=== PATIENT | male | born 1965 | race American Indian/Alaskan Native ===

== ENCOUNTER 2017-02-28 02:14 | Inpatient (IN) | payer OTHER ==
[2017-02-28 04:26] LABS: Basophils # (Auto) 0.1 K/mm3 (0.0-0.1); Basophils % (Auto) 1.1 % (0.0-1.8); Eosinophils # (Auto) 0.2 K/mm3 (0.0-0.4); Eosinophils % (Auto) 1.7 % (0.0-4.3); Hematocrit 46.4 % (35.5-45.6); Lymphocytes # (Auto) 3.2 K/mm3 (1.2-5.4); Lymphocytes % (Auto) 35.2 % (13.4-35.0); Mean Corpuscular HGB Conc 32 % (32-34); Mean Corpuscular Hemoglobin 28 pg (28-32); Mean Corpuscular Volume 87 fl (84-94); Monocytes # (Auto) 0.7 K/mm3 (0.0-0.8); Monocytes % (Auto) 7.8 % (0.0-7.3); Platelet Count 243 K/mm3 (140-440); Red Blood Count 5.32 M/mm3 (3.65-5.03)
[2017-02-28 04:48] LABS: BUN/Creatinine Ratio 13; Blood Urea Nitrogen 10 mg/dL (9-20); Calcium 8.7 mg/dL (8.4-10.2); Hemolysis Index 7
[2017-02-28 05:02] LABS: Chol/HDL Ratio 4.35 %; HDL Cholesterol 34 mg/dL (40-59); LDL Cholesterol,Direct 99 mg/dL (50-130)
[2017-02-28] MEDS ORDERED: HEPARIN 10,000 UNITS/10 ML IV ONE (05:07)
[2017-02-28] MEDS ORDERED: HEPARIN/ 0.45% NACL-25,000 UNIT/500 ML 25,000 UNIT/500 ML BAG IV SCH (06:00)
--- NOTE | 2017-02-28 06:18 | Emergency Department Report ---
HPI - General Chief Complaint: Dyspnea/Respdistress Time Seen by Provider: 02/28/17 03:51 - HPI HPI: This is a 52-year-old [place] male presents to the emergency department by EMS from a [place] facility with a complaint of possible new onset CHF. The patient' s been having a 2-3 day history of some chest discomfort and shortness of breath. He has a past medical history of lupus and he is a tobacco smoker. He had a full workup at [place] including CT of the chest and abdomen pelvis, labs, EKG. The patient denies any family history of early cardiac events. No recent travel or sick contacts at home. Currently the patient has some intermittent shortness of breath but he is asymptomatic in regards to the chest pain but does present with a Nitropaste on his chest. He already received a full dose aspirin and a 40 mg IV dose of Lasix. The patient's labs, EKG, H&P and the imaging disks were all sent with the patient and are currently on his chart. ED Past Medical Hx - Past Medical History Additional medical history: Lupus - Surgical History Past Surgical History?: No - Social History Smoking Status: Current Every Day Smoker Substance Use Type: None - Medications Home Medications: Home Medications Medication Instructions Recorded Confirmed Last Taken Type No Known Home Medications [No 02/28/17 02/28/17 Unknown History Reported Home Medications] ED Review of Systems ROS: Stated complaint: CHEST PAIN/CHF Other details as noted in HPI Comment: All other systems reviewed and negative Constitutional: denies: chills, fever Eyes: denies: eye pain, eye discharge, vision change ENT: denies: ear pain, throat pain Respiratory: shortness of breath. denies: cough Cardiovascular: chest pain, edema. denies: palpitations Gastrointestinal: denies: abdominal pain, nausea, diarrhea Genitourinary: denies: urgency, dysuria Musculoskeletal: denies: back pain, joint swelling, arthralgia Skin: denies: rash, lesions Neurological: denies: headache, weakness, paresthesias Physical Exam - Physical Exam Vital Signs: Vital Signs 02/28/17 02/28/17 02/28/17 02:44 02:46 02:51 Temperature 98.1 F Pulse Rate 103 H 99 H 96 H Respiratory 26 H 30 H 26 H Rate Blood Pressure 151/106 Blood Pressure 151/106 [Left] O2 Sat by Pulse Oximetry 02/28/17 02/28/17 02/28/17 03:02 03:15 03:30 Temperature Pulse Rate 85 85 85 Respiratory 15 24 19 Rate Blood Pressure 151/106 142/97 145/95 Blood Pressure [Left] O2 Sat by Pulse 96 96 97 Oximetry 02/28/17 02/28/17 02/28/17 03:46 04:00 04:16 Temperature Pulse Rate 110 H 104 H 91 H Respiratory 32 H 27 H 24 Rate Blood Pressure 147/89 132/77 139/94 Blood Pressure [Left] O2 Sat by Pulse 98 98 97 Oximetry 02/28/17 02/28/17 02/28/17 04:30 04:45 05:00 Temperature Pulse Rate 82 79 83 Respiratory 19 20 20 Rate Blood Pressure 132/86 139/95 130/87 Blood Pressure [Left] O2 Sat by Pulse 97 98 97 Oximetry 02/28/17 02/28/17 05:06 05:15 Temperature Pulse Rate 80 Respiratory 16 21 Rate Blood Pressure 129/88 Blood Pressure [Left] O2 Sat by Pulse 100 98 Oximetry Physical Exam: GENERAL: The patient is well-developed well-nourished. HENT: Normocephalic. Atraumatic. Patient has moist mucous membranes. EYES: Extraocular motions are intact. Pupils equal reactive to light bilaterally. NECK: Supple. Trachea is midline. CHEST/LUNGS: Clear to auscultation. There is no respiratory distress noted. HEART/CARDIOVASCULAR: Regular. There is no tachycardia. There is no murmur. ABDOMEN: Abdomen is soft, nontender. Patient has normal bowel sounds. There is no abdominal distention. SKIN: Mild pitting edema to the bilateral distal lower extremities. NEURO: The patient is awake, alert, and oriented. The patient is cooperative. The patient has no focal neurologic deficits. The patient has normal speech and gait. MUSCULOSKELETAL: There is no tenderness or deformity. There is no limitation range of motion. There is no evidence of acute injury. ED Course Vital Signs 02/28/17 02/28/17 02/28/17 02:44 02:46 02:51 Temperature 98.1 F Pulse Rate 103 H 99 H 96 H Respiratory 26 H 30 H 26 H Rate Blood Pressure 151/106 Blood Pressure 151/106 [Left] O2 Sat by Pulse Oximetry 02/28/17 02/28/17 02/28/17 03:02 03:15 03:30 Temperature Pulse Rate 85 85 85 Respiratory 15 24 19 Rate Blood Pressure 151/106 142/97 145/95 Blood Pressure [Left] O2 Sat by Pulse 96 96 97 Oximetry 02/28/17 02/28/17 02/28/17 03:46 04:00 04:16 Temperature Pulse Rate 110 H 104 H 91 H Respiratory 32 H 27 H 24 Rate Blood Pressure 147/89 132/77 139/94 Blood Pressure [Left] O2 Sat by Pulse 98 98 97 Oximetry 02/28/17 02/28/17 02/28/17 04:30 04:45 05:00 Temperature Pulse Rate 82 79 83 Respiratory 19 20 20 Rate Blood Pressure 132/86 139/95 130/87 Blood Pressure [Left] O2 Sat by Pulse 97 98 97 Oximetry 02/28/17 02/28/17 05:06 05:15 Temperature Pulse Rate 80 Respiratory 16 21 Rate Blood Pressure 129/88 Blood Pressure [Left] O2 Sat by Pulse 100 98 Oximetry - Consultations Consultation #1: I spoke with Dr. Wendie Mendez, cardiology, who has agreed to see the patient in consultation and recommends heparin based on the case presentation. 02/28/17 06:18 ED Medical Decision Making - Lab Data Result diagrams: 02/28/17 04:10 02/28/17 04:10 - EKG Data -: EKG Interpreted by Me EKG shows normal: sinus rhythm, axis, intervals, QRS complexes (Q waves in the septal leads), ST-T waves (there is some mild ST elevation in the anterior leads that could be early repolarization versus ischemia but does not appear consistent with ST elevation HI, T-wave inversions to the inferior and lateral leads) Rate: normal - EKG Data When compared to previous EKG there are: previous EKG unavailable Interpretation: other (sinus rhythm, Q waves in septal leads, T-wave inversions in the inferior and lateral leads) - Medical Decision Making Patient has a BNP greater than 3000. Troponin is elevated at 0.037. He had received Lasix for diuresis and a photo aspirin. He has Nitropaste on the chest. I spoke with cardiology who recommended heparin. The patient will be admitted to the hospital for further evaluation and treatment. I spoke to Dr. Ahumada at [place] who gave us permission to keep him at the hospital - Differential Diagnosis HI, PE, CHF< Pneumonia Critical Care Time: No Critical care attestation.: If time is entered above; I have spent that time in minutes in the direct care of this critically ill patient, excluding procedure time. ED Disposition Clinical Impression: NSTEMI (non-ST elevated myocardial infarction), Tobacco abuse CHF (congestive heart failure) Qualifiers: Congestive heart failure type: unspecified Congestive heart failure chronicity : acute Qualified Code(s): I50.9 - Heart failure, unspecified Disposition: 09 OP ADMIT IP TO THIS HOSP Is pt being admited?: Yes Condition: Fair Referrals: RYLEE MCDANIELS MD [Primary Care Provider] - 3-5 Days Time of Disposition: 06:19
[2017-02-28 06:46] LABS: INR 1.13 (0.87-1.13)
[2017-02-28 07:32] LABS: Partial Thromboplastin Time 203.1 Sec. (24.2-36.6)
--- NOTE | 2017-02-28 13:15 | History and Physical Report ---
History of Present Illness Date of examination: 02/28/17 Date of admission: 02/28/17 08:48 Chief complaint: SOB History of present illness: Patient is a 52 yo man with a history of diet controlled hypertension, tobacco dependancy and SLE (dx via head/scalp skin bx by [facility] at [facility]) who presents from [facility] with severe, constant, worsening shortness of breath that started approximately 3 days ago associated with a nonproductive cough, substernal chest heaviness without any radiation, associated with a nonproductive cough, right lower quadrant heaviness and insomnia. Patient denies any aggravating or relieving factors to the shortness of breath. He was sent over for evaluation of CHF per chest x- ray. Patient was also found to have elevated blood pressure, elevated troponin , ED physician notified quantitative analyst and started IV heparin drip. Patient had labs, imaging at [facility]. 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 Family history: Father had multiple strokes as early as his 50s, mother has hypertension, no early MIs or diabetes ROS: Constitutional: denies: fever ENT: denies: throat or neck pain Respiratory: Positive cough, shortness of breath Cardiovascular: Positive: chest pain Endocrine: denies unexplained weight loss or gain Gastrointestinal: denies: abdominal pain, nausea Genitourinary: denies: dysuria Rectal: denies no incontinence, no bleeding, no itching, no discharge Musculoskeletal: denies swelling, myaglia, muscle weakness Skin: Positive rash Neurological: denies: headache Hematological/Lymphatic: denies: easy bleeding or easy bruising Allergic/Immunologic: no urticaria, no allergic rhinitis, no anaphylaxis Psych: denies sadness or hopelessness, SI/HI Medications and Allergies Allergies Allergy/AdvReac Type Severity Reaction Status Date / Time No Known Allergies Allergy Verified 02/28/17 05:12 Home Medications Medication Instructions Recorded Confirmed Last Taken Type No Known Home Medications [No 02/28/17 02/28/17 Unknown History Reported Home Medications] Active Meds: Active Medications Heparin Sodium/Sodium Chloride (Heparin/ 0.45% Nacl-25,000 Unit/500 Ml) 25,000 unit in 500 mls @ 20 mls/hr IV TITRATE SANDRA; 1,000 UNITS/HR PRN Reason: Protocol Last Titration: 02/28/17 12:58 Dose: 1,000 units/hr, 20 mls/hr Exam - Physical Exam Narrative exam: GEN: WDWN, NAD, AWAKE, ALERT, ORIENTATED x 3 HEENT: NCAT, EOMI, PERRL, OP Clear NECK: supple, no adenopathy, no thyromegaly, + JVD CVS/HEART: RRR, NORMAL S1S2, NO JVD, pulses present bilaterally CHEST/LUNGS: bilateral crackles, Symmetrical chest expansion, good air entry bilaterally GI/Abdomen: soft, NTND, good bowel sounds, no guarding or rebound /Bladder: no suprapubic tenderness, no CVA or paraspinal tenderness EXT/Skin: ble pitting edema, skin lesion scalp, face of lupus MSK: FROM x 4 Neuro: CN 2-12 grossly intact, no new focal deficits Psych: calm - Constitutional Vitals: Temp Pulse Resp BP Pulse Ox 98.1 F 90 25 H 134/81 97 02/28/17 02:51 02/28/17 12:30 02/28/17 12:30 02/28/17 12:30 02/28/17 12:30 Results - Labs CBC & Chem 7: 02/28/17 04:10 02/28/17 04:10 Labs: Abnormal lab results 02/28/17 02/28/17 02/28/17 Range/Units 04:10 04:10 05:40 RBC 5.32 H (3.65-5.03) M/mm3 Hct 46.4 H (35.5-45.6) % Lymph % (Auto) 35.2 H (13.4-35.0) % [place] % (Auto) 7.8 H (0.0-7.3) % PT 15.1 H (12.2-14.9) Sec. APTT 203.1 H* (24.2-36.6) Sec. Carbon Dioxide 21 L (22-30) mmol/L Troponin T 0.037 H (0.00-0.029) ng/mL NT-Pro-B Natriuret Pep 3942 H (0-900) pg/mL HDL Cholesterol 34 L (40-59) mg/dL 02/28/17 02/28/17 Range/Units 09:33 12:29 RBC (3.65-5.03) M/mm3 Hct (35.5-45.6) % Lymph % (Auto) (13.4-35.0) % [place] % (Auto) (0.0-7.3) % PT (12.2-14.9) Sec. APTT 84.6 H* (24.2-36.6) Sec. Carbon Dioxide (22-30) mmol/L Troponin T 0.033 H (0.00-0.029) ng/mL NT-Pro-B Natriuret Pep (0-900) pg/mL HDL Cholesterol (40-59) mg/dL Assessment and Plan Patient is a 52 yo man with a history of diet controlled hypertension, tobacco dependancy and SLE (dx via head/scalp skin bx by [facility] at [facility]) who presents from [facility] with severe, constant, worsening shortness of breath that started approximately 3 days ago associated with a nonproductive cough, substernal chest heaviness without any radiation, associated with a nonproductive cough, right lower quadrant heaviness and insomnia. Patient denies any aggravating or relieving factors to the shortness of breath. He was sent over for evaluation of CHF per chest x- ray. Patient was also found to have elevated blood pressure, elevated troponin , ED physician notified quantitative analyst and started IV heparin drip. Patient had labs, imaging at [facility]. Patient has received ASA and iv lasix. 2v Chest x-ray at [facility] reported as right perihilar vascular congestion with prominent bronchovascular markings in the right lower lobe, no consolidation TSH was 1.97 CT of abdomen and pelvis reported as no acute findings -NSTEMI: iv heparin, await Cardiology evaluation, treat with aspirin and bb, statin, ntg -Acute CHF exacerbation, suspect at least diastolic dysfunction due to silent untreated hypertension: get ECHO, treat with iv lasix, repeat cxr in am, lower dose of bb due to chf ex -Hypertension urgency: prn iv labetalolo -Tobacco dependency: counselled on stopping, order nicotine patch -DVT/GI prophylaxis: scd and on iv heparin, ppi full code
--- NOTE | 2017-02-28 13:20 | Consultation ---
History of Present Illness Consult date: 02/28/17 Requesting physician: SHILPA LARKIN Consult reason: chest pain History of present illness: The patient is a 52 year old male with a history of hypertension, lupus and tobacco abuse who presented to the ER from a [place] facility with complaints of worsening shortness of breath, dyspnea on exertion, orthopnea, LE edema and a dry cough ongoing for the past one week. He denies any chest pain or palpitations. CXR done at [place] showed right perihilar vascular congestion with prominent vascular markings in the right LL. Chest CTA was negative for PE but showed moderate, R > L pleural effusion and patchy perihilar ground glass opacities with interlobular septal and bronchial wall thickening suggesting mild alveolar and interstitial edema. BNP 3942. Troponin 0.037, 0.033. No previous diagnosis of heart failure or previous ischemic evaluation. Past History Past Medical History: hypertension, other (lupus) Past Surgical History: No surgical history Social history: smoking (1/2 PPD), full code. denies: alcohol abuse, prescription drug abuse, IV drug use Family history: no significant family history Medications and Allergies Allergies Allergy/AdvReac Type Severity Reaction Status Date / Time No Known Allergies Allergy Verified 02/28/17 05:12 Home Medications Medication Instructions Recorded Confirmed Last Taken Type No Known Home Medications [No 02/28/17 02/28/17 Unknown History Reported Home Medications] Active Meds: Active Medications Heparin Sodium/Sodium Chloride (Heparin/ 0.45% Nacl-25,000 Unit/500 Ml) 25,000 unit in 500 mls @ 20 mls/hr IV TITRATE SANDRA; 1,000 UNITS/HR PRN Reason: Protocol Last Titration: 02/28/17 12:58 Dose: 1,000 units/hr, 20 mls/hr Review of Systems Constitutional: no fever, no chills Ears, nose, mouth and throat: no nasal congestion, no nasal discharge, no sinus pressure Cardiovascular: orthopnea, shortness of breath, dyspnea on exertion, no chest pain, no palpitations Respiratory: cough, shortness of breath, dyspnea on exertion, no congestion, no wheezing Gastrointestinal: no abdominal pain, no nausea, no vomiting, no diarrhea, no constipation Genitourinary Male: no dysuria, no hematuria Musculoskeletal: no neck stiffness, no neck pain, no myalgias Integumentary: no rash, no pruritis Neurological: no parathesias, no numbness, no tingling, no headaches Endocrine: no cold intolerance, no heat intolerance Hematologic/Lymphatic: no easy bruising, no easy bleeding Allergic/Immunologic: no urticaria, no wheezing Physical Examination Last Vital Signs Temp 98.1 F 02/28/17 02:51 Pulse 102 H 02/28/17 13:40 Resp 25 H 02/28/17 12:30 BP 134/81 02/28/17 12:30 Pulse Ox 97 02/28/17 12:30 General appearance: no acute distress HEENT: Positive: Normocephaly, Mucus Membranes Moist Neck: Positive: neck supple, trachea midline Cardiac: Positive: Reg Rate and Rhythm, S1/S2 Lungs: Positive: Rales (bilateral bases) Neuro: Positive: Grossly Intact Abdomen: Positive: Soft, Active Bowel Sounds. Negative: Tender Skin: Positive: Clear. Negative: Rash Extremities: Present: +1 Edema Results 02/28/17 04:10 02/28/17 04:10 Coagulation 02/28/17 02/28/17 Range/Units 05:40 09:33 PT 15.1 H (12.2-14.9) Sec. INR 1.13 (0.87-1.13) APTT 203.1 H* 84.6 H* (24.2-36.6) Sec. Lipids 02/28/17 Range/Units 04:10 Triglycerides 76 (2-149) mg/dL Cholesterol 148 (50-199) mg/dL HDL Cholesterol 34 L (40-59) mg/dL Cholesterol/HDL Ratio 4.35 % CBC 02/28/17 Range/Units 04:10 WBC 9.1 (4.5-11.0) K/mm3 RBC 5.32 H (3.65-5.03) M/mm3 Hgb 15.0 (11.8-15.2) gm/dl Hct 46.4 H (35.5-45.6) % Plt Count 243 (140-440) K/mm3 Lymph # 3.2 (1.2-5.4) K/mm3 [place] # 0.7 (0.0-0.8) K/mm3 Eos # 0.2 (0.0-0.4) K/mm3 Baso # 0.1 (0.0-0.1) K/mm3 Comprehensive Metabolic Panel 02/28/17 Range/Units 04:10 Sodium 140 (137-145) mmol/L Potassium 4.1 (3.6-5.0) mmol/L Chloride 102.4 (98-107) mmol/L Carbon Dioxide 21 L (22-30) mmol/L BUN 10 (9-20) mg/dL Creatinine 0.8 (0.8-1.5) mg/dL Glucose 93 (75-100) mg/dL Calcium 8.7 (8.4-10.2) mg/dL - Imaging and Cardiology Echo: pending EKG: image reviewed EKG interpretations - Telemetry EKG Rhythm: Sinus Rhythm - EKG Sinus rhythms and dysrhythmias: sinus rhythm Supraventricular dysrhythmia: atrial premature complexe Repolarization changes or abnormalities: nonspecific abnormality, ST segment, and/or T wave Assessment and Plan Acute heart failure Clinically improving Continue IV lasix 40mg daily, PO metoprolol 25mg BID Await echo findings Elevated troponin Mildly elevated but downtrending D/c heparin gtt Lexiscan thallium stress test in am Hypertension Lupus Tobacco abuse The patient has been seen in conjunction with Dr. Jonas who agrees with the assessment and plan of care. Thank you Dr. Larkin for allowing us to participate in the care of this patient.
[2017-02-28] MEDS ORDERED: ZOFRAN IV PRN (13:42)
[2017-02-28] MEDS ORDERED: NORCO 5/325 PO PRN (13:42)
[2017-02-28] MEDS ORDERED: AMBIEN PO PRN (13:42)
[2017-02-28] MEDS ORDERED: TYLENOL PO PRN (13:42)
[2017-02-28] MEDS: HABITROL TD SCH (14:24)
[2017-02-28] MEDS: LOPRESSOR PO SCH (21:55)
[2017-03-01] MEDS ORDERED: LEXISCAN IV ONE ×2 (08:42→08:43)
--- NOTE | 2017-03-01 08:46 | XRay Report ---
AP chest x-ray. History: Shortness of breath. Findings: The heart is borderline in size with mild central vascular congestion. The lungs are clear. No pleural fluid is seen. Impression: Borderline heart size with mild central vascular congestion.
[2017-03-01] MEDS ORDERED: Fluarix Quad 2017-2018(36 MOS+ IM ONE (12:00)
[2017-03-01] MEDS: PROTONIX PO SCH (13:10)
[2017-03-01] MEDS: HABITROL TD SCH (13:10)
[2017-03-01] MEDS: LASIX IV SCH (13:10)
[2017-03-01] MEDS: ASPIRIN PO SCH (13:13)
[2017-03-01] MEDS: LOPRESSOR PO SCH (13:13)
--- NOTE | 2017-03-01 14:10 | Progress Note ---
Assessment and Plan Assessment: Acute systolic heart failure Dilated CMP Elevated troponin HTN Lupus Tobacco use - cessation encouraged H/o ETOH abuse - has been sober for 19 years; strong family h/o ETOH abuse Plan: Echo reviewed - EF 25-30%, LV mild to moderately dilated, apex markedly hypokinetic, mild pulm HTN with RVSP 46mmHg, mild AR, mild to mod MR. S/p lexiscan MPI stress test this AM which showed multiple large fixed perfusion defects and some minimal reversibility, EF 27%. Pt reports no known history of CMP, heart failure or CAD. Convert lopressor to coreg given CMP. Initiate low dose lisinopril. Continue diuresis with IV lasix. Coronary angiography recommended for definitive diagnosis. Indications, potential risks and benefits of LHC reviewed with pt and he is agreeable to proceed with LHC in AM. NPO after MN. The patient has been seen in conjunction with Dr. Jonas who agrees with the assessment and plan of care. Subjective Date of service: 03/01/17 Principal diagnosis: HF Interval history: pt up in chair, states his SOB and BLE edema are improving. s/p stress test this AM. Objective Last Vital Signs Temp 98.4 F 03/01/17 05:45 Pulse 86 03/01/17 13:13 Resp 16 03/01/17 12:54 BP 127/92 03/01/17 13:13 Pulse Ox 98 03/01/17 12:54 - Physical Examination General: No Apparent Distress HEENT: Positive: Normocephaly, Mucus Membranes Moist Neck: Positive: neck supple, trachea midline Cardiac: Positive: Reg Rate and Rhythm, S1/S2 Lungs: Positive: clear to auscultation Neuro: Positive: Grossly Intact Abdomen: Positive: Soft, Active Bowel Sounds. Negative: Tender Skin: Positive: Clear. Negative: Rash Extremities: Present: +1 Edema (BLE) - Imaging and Cardiology EKG: image reviewed Pharmacologic stress test: report reviewed Echo: report reviewed ( EF 25-30%, LV mild to moderately dilated, apex markedly hypokinetic, mild pulm HTN with RVSP 46mmHg, mild AR, mild to mod MR.) - Telemetry EKG Rhythm: Sinus Rhythm - EKG Sinus rhythms and dysrhythmias: sinus rhythm Repolarization changes or abnormalities: nonspecific abnormality, ST segment, and/or T wave
[2017-03-01] MEDS ORDERED: NACL 0.9% 500 ML 500 ML IV SCH (15:00)
--- NOTE | 2017-03-01 15:12 | Progress Note ---
Assessment and Plan Assessment and plan: Patient is a 52 yo man with a history of diet controlled hypertension, tobacco dependancy and SLE (dx via head/scalp skin bx by [place] [facility] at [facility]) who presents from [facility] with severe, constant, worsening shortness of breath that started approximately 3 days ago associated with a nonproductive cough, substernal chest heaviness without any radiation, associated with a nonproductive cough, right lower quadrant heaviness and insomnia. Patient denies any aggravating or relieving factors to the shortness of breath. He was sent over for evaluation of CHF per chest x- ray. Patient was also found to have elevated blood pressure, elevated troponin , ED physician notified target worker and started IV heparin drip. Patient had labs, imaging at [facility]. Patient has received ASA and iv lasix. per [place] paperwork: "2v Chest x-ray at [facility] reported as right perihilar vascular congestion with prominent bronchovascular markings in the right lower lobe, no consolidation. TSH was 1.97 CT of abdomen and pelvis reported as no acute findings" -NSTEMI defer to Cardiology: treated with iv heparin, aspirin, bb, statin and ntg -Acute systolic heart failure exacerbation:: get ECHO, treat with iv lasix, repeat cxr in am, lower dose of bb due to chf ex -Hypertension urgency: prn iv labetalolo -Tobacco dependency: counselled on stopping, order nicotine patch -Cardiomyopathy, new diagnosis with abn stress test: Cardiac cath per Cardiology -DVT/GI prophylaxis: scd and on iv heparin, ppi full code 03/01/17: per Cardiology: Plan: "Echo reviewed - EF 25-30%, LV mild to moderately dilated, apex markedly hypokinetic, mild pulm HTN with RVSP 46mmHg, mild AR, mild to mod MR. S/p lexiscan MPI stress test this AM which showed multiple large fixed perfusion defects and some minimal reversibility, EF 27%. Pt reports no known history of CMP, heart failure or CAD. Convert lopressor to coreg given CMP. Initiate low dose lisinopril. Continue diuresis with IV lasix. Coronary angiography recommended for definitive diagnosis. Indications, potential risks and benefits of LHC reviewed with pt and he is agreeable to proceed with LHC in AM. NPO after MN. The patient has been seen in conjunction with Dr. Jonas who agrees with the assessment and plan of care." pCXR reported as borderline heart size with mild central vascular congestion Cardiac cath tomorrow. History Interval history: Patient was seen and examined. Follow-up on current diagnosis of sob/chest pain which has resolved. Overnight uneventful. Patient denies any chest pain, shortness breath, nausea/vomiting or severe headaches. Imaging, nursing note, chart, labs and old chart reviewed. Discussed with patient.Patient was seen and examined. Hospitalist Physical - Physical exam Narrative exam: GEN: WDWN, NAD, AWAKE, ALERT, ORIENTATED x 3 HEENT: NCAT, EOMI, PERRL, OP Clear NECK: supple, no adenopathy, no thyromegaly, + JVD CVS/HEART: RRR, NORMAL S1S2, NO JVD, pulses present bilaterally CHEST/LUNGS: bilateral crackles, Symmetrical chest expansion, good air entry bilaterally GI/Abdomen: soft, NTND, good bowel sounds, no guarding or rebound /Bladder: no suprapubic tenderness, no CVA or paraspinal tenderness EXT/Skin: ble pitting edema, skin lesion scalp, face of lupus MSK: FROM x 4 Neuro: CN 2-12 grossly intact, no new focal deficits Psych: calm - Constitutional Vitals: Temp Pulse Resp BP Pulse Ox 98.4 F 86 16 127/92 98 03/01/17 05:45 03/01/17 13:13 03/01/17 12:54 03/01/17 13:13 03/01/17 12:54 General appearance: Present: no acute distress Results - Labs CBC & Chem 7: 02/28/17 04:10 02/28/17 04:10 Labs: Laboratory Last Values WBC 9.1 K/mm3 (4.5-11.0) 02/28/17 04:10 RBC 5.32 M/mm3 (3.65-5.03) H 02/28/17 04:10 Hgb 15.0 gm/dl (11.8-15.2) 02/28/17 04:10 Hct 46.4 % (35.5-45.6) H 02/28/17 04:10 MCV 87 fl (84-94) 02/28/17 04:10 MCH 28 pg (28-32) 02/28/17 04:10 MCHC 32 % (32-34) 02/28/17 04:10 RDW 15.0 % (13.2-15.2) 02/28/17 04:10 Plt Count 243 K/mm3 (140-440) 02/28/17 04:10 Lymph % (Auto) 35.2 % (13.4-35.0) H 02/28/17 04:10 [place] % (Auto) 7.8 % (0.0-7.3) H 02/28/17 04:10 Eos % (Auto) 1.7 % (0.0-4.3) 02/28/17 04:10 Baso % (Auto) 1.1 % (0.0-1.8) 02/28/17 04:10 Lymph # 3.2 K/mm3 (1.2-5.4) 02/28/17 04:10 [place] # 0.7 K/mm3 (0.0-0.8) 02/28/17 04:10 Eos # 0.2 K/mm3 (0.0-0.4) 02/28/17 04:10 Baso # 0.1 K/mm3 (0.0-0.1) 02/28/17 04:10 Seg Neutrophils % 54.2 % (40.0-70.0) 02/28/17 04:10 Seg Neutrophils # 5.0 K/mm3 (1.8-7.7) 02/28/17 04:10 PT 15.1 Sec. (12.2-14.9) H 02/28/17 05:40 INR 1.13 (0.87-1.13) 02/28/17 05:40 APTT 84.6 Sec. (24.2-36.6) H* 02/28/17 09:33 Heparin Anti-Xa Level 0.33 U.I./ml (0.3-0.7) 02/28/17 12:29 Sodium 140 mmol/L (137-145) 02/28/17 04:10 Potassium 4.1 mmol/L (3.6-5.0) 02/28/17 04:10 Chloride 102.4 mmol/L (98-107) 02/28/17 04:10 Carbon Dioxide 21 mmol/L (22-30) L 02/28/17 04:10 Anion Gap 21 mmol/L 02/28/17 04:10 BUN 10 mg/dL (9-20) 02/28/17 04:10 Creatinine 0.8 mg/dL (0.8-1.5) 02/28/17 04:10 Estimated GFR > 60 ml/min 02/28/17 04:10 BUN/Creatinine Ratio 13 % 02/28/17 04:10 Glucose 93 mg/dL (75-100) 02/28/17 04:10 Calcium 8.7 mg/dL (8.4-10.2) 02/28/17 04:10 Troponin T 0.028 ng/mL (0.00-0.029) 02/28/17 19:19 NT-Pro-B Natriuret Pep 3942 pg/mL (0-900) H 02/28/17 04:10 Triglycerides 76 mg/dL (2-149) 02/28/17 04:10 Cholesterol 148 mg/dL (50-199) 02/28/17 04:10 LDL Cholesterol Direct 99 mg/dL (50-130) 02/28/17 04:10 HDL Cholesterol 34 mg/dL (40-59) L 02/28/17 04:10 Cholesterol/HDL Ratio 4.35 % 02/28/17 04:10
[2017-03-01] MEDS: COREG PO SCH (21:27)
[2017-03-01] MEDS: ZESTRIL PO SCH (21:32)
--- NOTE | 2017-03-02 00:54 | Treadmill Report ---
This is a single isotope dual study myocardial perfusion scan report. REFERRING PHYSICIAN: Guille Chi MD, hospitalist. Reviewed and [facility]. PROCEDURE: The patient received 10 mCi of technetium 99m Myoview intravenously under resting conditions. Resting myocardial perfusion scan was done. Subsequently, the patient underwent Lexiscan stress test as per the protocol. During Lexiscan stress, the patient received 29 mCi of technetium 99m Myoview intravenously. After 30-60 minutes, post stress images were done. Computerized reconstruction images were performed for analysis. The post-stress images revealed moderately dilated left ventricle. A large severe apical perfusion defect was seen. A moderate sized severe anteroapical perfusion defect was also seen. A large severe septal perfusion defect was seen. A large severe inferior wall perfusion defect was also seen. Gated study revealed severe global left ventricular systolic dysfunction with LVEF around 27%. The resting images revealed minimal reversibility in the septal region and the inferior wall. There was no reperfusion in the apical region or anteroapical regions of the left ventricle. CONCLUSION: 1. Moderately dilated left ventricle. 2. Large fixed severe apical perfusion defect. 3. Moderate sized severe fixed anteroapical perfusion defect. 4. Large severe predominantly fixed minimally reversible septal perfusion defect. 5. Large severe predominantly fixed and minimally reversible inferior wall perfusion defect. 6. Severe global LV systolic dysfunction with LVEF of 27%. D.D 03/01/2017 11:37 JOB# [id number] [facility]
[2017-03-02] MEDS: ZESTRIL PO SCH ×2 (05:58→15:07)
[2017-03-02] MEDS ORDERED: NACL 0.9% 500 ML 500 ML IV SCH (06:00)
[2017-03-02 06:20] LABS: INR 0.95 (0.87-1.13)
[2017-03-02 06:26] LABS: Basophils # (Auto) 0.1 K/mm3 (0.0-0.1); Basophils % (Auto) 1.2 % (0.0-1.8); Eosinophils # (Auto) 0.2 K/mm3 (0.0-0.4); Eosinophils % (Auto) 2.2 % (0.0-4.3); Hematocrit 46.9 % (35.5-45.6); Hemoglobin 15.5 gm/dl (11.8-15.2); Lymphocytes # (Auto) 3.2 K/mm3 (1.2-5.4); Lymphocytes % (Auto) 38.6 % (13.4-35.0); Mean Corpuscular HGB Conc 33 % (32-34); Mean Corpuscular Hemoglobin 29 pg (28-32); Mean Corpuscular Volume 89 fl (84-94); Monocytes # (Auto) 0.7 K/mm3 (0.0-0.8); Monocytes % (Auto) 8.8 % (0.0-7.3); Platelet Count 243 K/mm3 (140-440); Red Cell Distribution Width 15.1 % (13.2-15.2)
[2017-03-02 06:29] LABS: BUN/Creatinine Ratio 13; Blood Urea Nitrogen 10 mg/dL (9-20); Calcium 8.4 mg/dL (8.4-10.2); Hemolysis Index 19
[2017-03-02] MEDS ORDERED: ASPIRIN ONE (08:07)
[2017-03-02] MEDS: ASPIRIN PO SCH ×2 (08:07→15:06)
[2017-03-02] MEDS ORDERED: NITROGLYCERIN SYRINGE 0 ML ONE (08:19)
[2017-03-02] MEDS: VERSED ONE ×2 (08:47→09:00)
[2017-03-02] MEDS: CALAN ONE ×2 (08:48→09:03)
[2017-03-02] MEDS: SUBLIMAZE ONE ×2 (08:48→09:00)
[2017-03-02] MEDS: XYLOCAINE 2% INFILTRATI ONE ×2 (08:48→09:01)
[2017-03-02] MEDS: HEPARIN/NS 5000 UNIT/500ML(CATH LAB) 1,000 ML IR ONE ×2 (08:49→09:00)
[2017-03-02] MEDS: HEPARIN 10,000 UNITS/10 ML ONE ×2 (08:50→09:03)
--- NOTE | 2017-03-02 10:03 | Progress Note ---
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 Pt to be tx to [place] for possible CABG. The patient has been seen in conjunction with Dr. Carlos who agrees with the assessment and plan of care. Subjective Date of service: 03/02/17 Principal diagnosis: HF Interval history: pt for [facility] today. no current complaints. Objective Last Vital Signs Temp 97.8 F 03/02/17 04:52 Pulse 86 03/02/17 04:52 Resp 20 03/02/17 04:52 BP 125/85 03/02/17 04:52 Pulse Ox 96 03/02/17 04:52 - Physical Examination General: No Apparent Distress HEENT: Positive: Normocephaly, Mucus Membranes Moist Neck: Positive: neck supple, trachea midline Cardiac: Positive: Reg Rate and Rhythm, S1/S2 Lungs: Positive: clear to auscultation Neuro: Positive: Grossly Intact Abdomen: Positive: Soft, Active Bowel Sounds. Negative: Tender Skin: Positive: Clear. Negative: Rash Extremities: Present: +1 Edema (BLE) - Labs and Meds Coagulation 03/02/17 Range/Units 05:37 PT 13.2 (12.2-14.9) Sec. INR 0.95 (0.87-1.13) CBC 03/02/17 Range/Units 05:37 WBC 8.3 (4.5-11.0) K/mm3 RBC 5.30 H (3.65-5.03) M/mm3 Hgb 15.5 H (11.8-15.2) gm/dl Hct 46.9 H (35.5-45.6) % Plt Count 243 (140-440) K/mm3 Lymph # 3.2 (1.2-5.4) K/mm3 [place] # 0.7 (0.0-0.8) K/mm3 Eos # 0.2 (0.0-0.4) K/mm3 Baso # 0.1 (0.0-0.1) K/mm3 Comprehensive Metabolic Panel 03/02/17 Range/Units 05:37 Sodium 143 (137-145) mmol/L Potassium 4.1 (3.6-5.0) mmol/L Chloride 105.3 (98-107) mmol/L Carbon Dioxide 25 (22-30) mmol/L BUN 10 (9-20) mg/dL Creatinine 0.8 (0.8-1.5) mg/dL Glucose 91 (75-100) mg/dL Calcium 8.4 (8.4-10.2) mg/dL - Imaging and Cardiology EKG: image reviewed Echo: report reviewed ( EF 25-30%, LV mild to moderately dilated, apex markedly hypokinetic, mild pulm HTN with RVSP 46mmHg, mild AR, mild to mod MR.) - Telemetry EKG Rhythm: Sinus Rhythm - EKG Sinus rhythms and dysrhythmias: sinus rhythm Repolarization changes or abnormalities: nonspecific abnormality, ST segment, and/or T wave
--- NOTE | 2017-03-02 10:04 | Cardiac Catherization Report ---
INDICATION FOR PROCEDURE: The patient is a 52-year-old -[place] gentleman who presented to the hospital with complaints of cough and shortness of breath. His echocardiogram showed severe LV dysfunction and he has abnormal IV Lexiscan nuclear imaging with multiple defects. The patient denied any previous cardiac history. Because of those abnormalities with severe LV dysfunction, the patient was scheduled for cardiac catheterization for definitive diagnosis and treatment. The patient is aware of the procedure, potential complications, and the alternatives of therapy available. DESCRIPTION OF PROCEDURE: The patient was brought to the catheterization laboratory in a fasting condition. The right wrist area and groin was thoroughly cleansed with Betadine solution and sterile drapes were applied. Local anesthesia was achieved using 2% Xylocaine. The patient was sedated prior to this with IV Versed and fentanyl. Subsequently, right radial artery access was obtained and 5-Ugandan slender sheath was introduced. A 5-Ugandan multipurpose catheter was used to obtain the angiograms of the left coronary artery in multiple views followed by angiograms of the right coronary artery and left ventriculogram done in VIEIRA projection using hand injection. At the end of the procedure, catheter and sheath were removed. Good hemostasis was achieved. It is to be noted the patient was sedated with IV Versed and fentanyl and continuously monitored with EKG and O2 saturations and arterial pressure monitoring. The patient received medications at 9 a.m. and monitoring of the sedation ended at 9:11 a.m. During this monitoring, the patient did not have any significant arrhythmia or difficulties with O2 saturation. The patient is awake. Following findings were noted: HEMODYNAMICS: 1. Opening aortic pressure 128/79, ventricular pressure 128/40, no gradient across the aortic valve. 2. Left ventriculogram done in VIEIRA projection using hand injection is suboptimal because of limited amount of dye injected, dilated LV noted with diffuse hypokinesis, ejection fraction 20-25%. 3. Left coronary artery arises normally from left coronary cusp, left main without significant disease. LAD is occluded after large diagonal branch. Large diagonal branch itself has mild diffuse disease with 40-50% proximal lesion. This diagonal branch is a large vessel. LAD is occluded in the high mid part and filling late distally. Circumflex artery represented by a large marginal branch shows severe proximal and distal lesions. However, this vessel is bypassable. 4. Right coronary artery dominant vessel is occluded in the very proximal part with no visualization of the distal vessel. Collaterals were noted to the LAD. Finally, no significant collateral noted, the RCA appears to be dominant vessel. FINAL IMPRESSION: Severe LV dysfunction with ejection fraction 20-25% and severe triple vessel disease. Considering the above angiographic pictures and LV dysfunction, it was felt that the patient would benefit from revascularization surgically. The patient tolerated the procedure well. No untoward complications were noted. It is to be noted the patient had significantly elevated end diastolic pressure; however, the patient is comfortable without any chest pain or shortness of breath. No untoward complications were noted. JOB# [id number] MONICA/BRANDAN FRAUSTO
--- NOTE | 2017-03-02 14:30 | Progress Note ---
Assessment and Plan Assessment and plan: Patient is a 52 yo man with a history of diet controlled hypertension, tobacco dependancy and SLE (dx via head/scalp skin bx by [place] [facility] at [facility]) who presents from [facility] with severe, constant, worsening shortness of breath that started approximately 3 days ago associated with a nonproductive cough, substernal chest heaviness without any radiation, associated with a nonproductive cough, right lower quadrant heaviness and insomnia. Patient denies any aggravating or relieving factors to the shortness of breath. He was sent over for evaluation of CHF per chest x- ray. Patient was also found to have elevated blood pressure, elevated troponin , ED physician notified culinary artist and started IV heparin drip. Patient had labs, imaging at [facility]. Patient has received ASA and iv lasix. per [place] paperwork: "2v Chest x-ray at [facility] reported as right perihilar vascular congestion with prominent bronchovascular markings in the right lower lobe, no consolidation. TSH was 1.97 CT of abdomen and pelvis reported as no acute findings" -NSTEMI defer to Cardiology: treated with iv heparin, aspirin, bb, statin and ntg -Acute systolic and diastolic heart failure exacerbation:: get ECHO, treat with iv lasix, repeat cxr in am, lower dose of bb due to chf ex -Hypertension urgency: prn iv labetalolo -Tobacco dependency: counselled on stopping, order nicotine patch -Cardiomyopathy, new diagnosis with abn stress test: Cardiac cath per Cardiology -DVT/GI prophylaxis: scd and on iv heparin, ppi full code 03/01/17: per Cardiology: Plan: "Echo reviewed - EF 25-30%, LV mild to moderately dilated, apex markedly hypokinetic, mild pulm HTN with RVSP 46mmHg, mild AR, mild to mod MR. S/p lexiscan MPI stress test this AM which showed multiple large fixed perfusion defects and some minimal reversibility, EF 27%. Pt reports no known history of CMP, heart failure or CAD. Convert lopressor to coreg given CMP. Initiate low dose lisinopril. Continue diuresis with IV lasix. Coronary angiography recommended for definitive diagnosis. Indications, potential risks and benefits of LHC reviewed with pt and he is agreeable to proceed with LHC in AM. NPO after MN. The patient has been seen in conjunction with Dr. Jonas who agrees with the assessment and plan of care." pCXR reported as borderline heart size with mild central vascular congestion Cardiac cath tomorrow. 03/02/17: LHC showed triple vessel disease, initially accepted to [facility] for CABG , but I informed Cardiology that the patient has [place] insurance and may need to go to a [facility]. So, patient is going to [facility] accepted by Dr. Bacilio Can. History Interval history: Patient was seen and examined. Follow-up on current diagnosis of sob/chest pain which has resolved. Overnight uneventful. Patient denies any chest pain, shortness breath, nausea/vomiting or severe headaches. Imaging, nursing note, chart, labs and old chart reviewed. Discussed with patient.Patient was seen and examined. Hospitalist Physical - Physical exam Narrative exam: GEN: WDWN, NAD, AWAKE, ALERT, ORIENTATED x 3 HEENT: NCAT, EOMI, PERRL, OP Clear NECK: supple, no adenopathy, no thyromegaly, + JVD CVS/HEART: RRR, NORMAL S1S2, NO JVD, pulses present bilaterally CHEST/LUNGS: bilateral crackles, Symmetrical chest expansion, good air entry bilaterally GI/Abdomen: soft, NTND, good bowel sounds, no guarding or rebound /Bladder: no suprapubic tenderness, no CVA or paraspinal tenderness EXT/Skin: ble pitting edema, skin lesion scalp, face of lupus MSK: FROM x 4 Neuro: CN 2-12 grossly intact, no new focal deficits Psych: calm - Constitutional Vitals: Temp Pulse Resp BP Pulse Ox 97.8 F 86 20 125/85 98 03/02/17 04:52 03/02/17 04:52 03/02/17 04:52 03/02/17 04:52 03/02/17 10:00 General appearance: Present: no acute distress Results - Labs CBC & Chem 7: 03/02/17 05:37 03/02/17 05:37 Labs: Laboratory Last Values WBC 8.3 K/mm3 (4.5-11.0) 03/02/17 05:37 RBC 5.30 M/mm3 (3.65-5.03) H 03/02/17 05:37 Hgb 15.5 gm/dl (11.8-15.2) H 03/02/17 05:37 Hct 46.9 % (35.5-45.6) H 03/02/17 05:37 MCV 89 fl (84-94) 03/02/17 05:37 MCH 29 pg (28-32) 03/02/17 05:37 MCHC 33 % (32-34) 03/02/17 05:37 RDW 15.1 % (13.2-15.2) 03/02/17 05:37 Plt Count 243 K/mm3 (140-440) 03/02/17 05:37 Lymph % (Auto) 38.6 % (13.4-35.0) H 03/02/17 05:37 [place] % (Auto) 8.8 % (0.0-7.3) H 03/02/17 05:37 Eos % (Auto) 2.2 % (0.0-4.3) 03/02/17 05:37 Baso % (Auto) 1.2 % (0.0-1.8) 03/02/17 05:37 Lymph # 3.2 K/mm3 (1.2-5.4) 03/02/17 05:37 [place] # 0.7 K/mm3 (0.0-0.8) 03/02/17 05:37 Eos # 0.2 K/mm3 (0.0-0.4) 03/02/17 05:37 Baso # 0.1 K/mm3 (0.0-0.1) 03/02/17 05:37 Seg Neutrophils % 49.2 % (40.0-70.0) 03/02/17 05:37 Seg Neutrophils # 4.1 K/mm3 (1.8-7.7) 03/02/17 05:37 PT 13.2 Sec. (12.2-14.9) 03/02/17 05:37 INR 0.95 (0.87-1.13) 03/02/17 05:37 APTT 84.6 Sec. (24.2-36.6) H* 02/28/17 09:33 Heparin Anti-Xa Level 0.33 U.I./ml (0.3-0.7) 02/28/17 12:29 Sodium 143 mmol/L (137-145) 03/02/17 05:37 Potassium 4.1 mmol/L (3.6-5.0) 03/02/17 05:37 Chloride 105.3 mmol/L (98-107) 03/02/17 05:37 Carbon Dioxide 25 mmol/L (22-30) 03/02/17 05:37 Anion Gap 17 mmol/L 03/02/17 05:37 BUN 10 mg/dL (9-20) 03/02/17 05:37 Creatinine 0.8 mg/dL (0.8-1.5) 03/02/17 05:37 Estimated GFR > 60 ml/min 03/02/17 05:37 BUN/Creatinine Ratio 13 % 03/02/17 05:37 Glucose 91 mg/dL (75-100) 03/02/17 05:37 POC Glucose 82 (70-105) 03/02/17 07:16 Calcium 8.4 mg/dL (8.4-10.2) 03/02/17 05:37 Troponin T 0.028 ng/mL (0.00-0.029) 02/28/17 19:19 NT-Pro-B Natriuret Pep 3942 pg/mL (0-900) H 02/28/17 04:10 Triglycerides 76 mg/dL (2-149) 02/28/17 04:10 Cholesterol 148 mg/dL (50-199) 02/28/17 04:10 LDL Cholesterol Direct 99 mg/dL (50-130) 02/28/17 04:10 HDL Cholesterol 34 mg/dL (40-59) L 02/28/17 04:10 Cholesterol/HDL Ratio 4.35 % 02/28/17 04:10
--- NOTE | 2017-03-02 14:34 | Discharge Summary ---
Providers - Providers Date of Admission: 02/28/17 08:48 Date of discharge: 03/03/17 Attending physician: ELDON CRUZ 02/28/17 05:08 Consult to Physician [CONS] Routine Consulting Provider: EL WEST Reason For Exam: Chest pain, CHF Place consult to:: Dr. Giuseppe West Notified:: Answering Service Phone number called:: [phone] Was contact made?: Yes If yes, spoke with:: Dr. Giuseppe West Time called:: 04:59 Comment:: Dr. Larkin (er dr) spoke with Dr. Giuseppe West 03/02/17 10:01 Consult to Cardiac Rehabilitation [CONS] Routine Reason For Exam: Cardiac Rehab Evaluation Primary care physician: RYLEE MCDANIELS Hospitalization Condition: Serious Hospital course: Patient is a 52 yo man with a history of diet controlled hypertension, tobacco dependancy and SLE (dx via head/scalp skin bx by [facility] at [facility]) who presents from [facility] with severe, constant, worsening shortness of breath that started approximately 3 days ago associated with a nonproductive cough, substernal chest heaviness without any radiation, associated with a nonproductive cough, right lower quadrant heaviness and insomnia. Patient denies any aggravating or relieving factors to the shortness of breath. He was sent over for evaluation of CHF per chest x- ray. Patient was also found to have elevated blood pressure, elevated troponin , ED physician notified line haul owner operator and started IV heparin drip. Patient had labs, imaging at [facility]. Patient has received ASA and iv lasix. per [facility] paperwork: "2v Chest x-ray at [facility] reported as right perihilar vascular congestion with prominent bronchovascular markings in the right lower lobe, no consolidation. TSH was 1.97 CT of abdomen and pelvis reported as no acute findings" -NSTEMI defer to Cardiology: treated with iv heparin, aspirin, bb, statin and ntg -Acute systolic and diastolic heart failure exacerbation:: get ECHO, treat with iv lasix, repeat cxr in am, lower dose of bb due to chf ex -Hypertension urgency: prn iv labetalolo -Tobacco dependency: counselled on stopping, order nicotine patch -Cardiomyopathy, new diagnosis with abn stress test: Cardiac cath per Cardiology -DVT/GI prophylaxis: scd and on iv heparin, ppi full code 03/01/17: per Cardiology: Plan: "Echo reviewed - EF 25-30%, LV mild to moderately dilated, apex markedly hypokinetic, mild pulm HTN with RVSP 46mmHg, mild AR, mild to mod MR. S/p lexiscan MPI stress test this AM which showed multiple large fixed perfusion defects and some minimal reversibility, EF 27%. Pt reports no known history of CMP, heart failure or CAD. Convert lopressor to coreg given CMP. Initiate low dose lisinopril. Continue diuresis with IV lasix. Coronary angiography recommended for definitive diagnosis. Indications, potential risks and benefits of LHC reviewed with pt and he is agreeable to proceed with LHC in AM. NPO after MN. The patient has been seen in conjunction with Dr. Jonas who agrees with the assessment and plan of care." pCXR reported as borderline heart size with mild central vascular congestion Cardiac cath tomorrow. 03/02/17: LHC showed triple vessel disease, initially accepted to [place] for CABG , but I informed Cardiology that the patient has [employer] insurance and may need to go to a [facility]. So, patient is going to [facility] accepted by Dr. Bacilio Can 03/03/17: Still waiting on bed at [facility], pt is upset because he hasn' t eaten. Dispositon: [facility] once bed is available Disposition: [id number] ANOTHER TYPE HLTHCARE Time spent for discharge: 36 minutes Core Measure Documentation - Palliative Care Palliative Care/ Comfort Measures: Not Applicable - Core Measures Any of the following diagnoses?: acute HI - VTE Discharge Requirements Deep Vein Thrombosis/Pulmonary Embolism Present on Admission: No Has pt received <5 days of overlap therapy or INR<2.0: No Anticoagulant overlap therapy prescribed at discharge: No Contraindication No Overlap Therapy order at DC: Not Indicated - Acute HI Discharge Requirements Aspirin at discharge: Yes HELLEN/ARB for LVSD if EF <40%: Yes Beta venkata at discharge: Yes Statin for LDL = or >100 mg/dl on DC: Yes Exam - Physical Exam Narrative exam: GEN: WDWN, NAD, AWAKE, ALERT, ORIENTATED x 3 HEENT: NCAT, EOMI, PERRL, OP Clear NECK: supple, no adenopathy, no thyromegaly, + JVD CVS/HEART: RRR, NORMAL S1S2, NO JVD, pulses present bilaterally CHEST/LUNGS: bilateral crackles, Symmetrical chest expansion, good air entry bilaterally GI/Abdomen: soft, NTND, good bowel sounds, no guarding or rebound /Bladder: no suprapubic tenderness, no CVA or paraspinal tenderness EXT/Skin: ble pitting edema, skin lesion scalp, face of lupus MSK: FROM x 4 Neuro: CN 2-12 grossly intact, no new focal deficits Psych: calm - Constitutional Vitals: Temp Pulse Resp BP Pulse Ox 97.8 F 86 20 125/85 98 03/02/17 04:52 03/02/17 04:52 03/02/17 04:52 03/02/17 04:52 03/02/17 10:00 Plan Activity: other (No strenous activity until cleared by Cardiology) Diet: low salt (NPO after ) Follow up with: RYLEE MCDANIELS MD [Primary Care Provider] - 3-5 Days
[2017-03-02] MEDS: COREG PO SCH ×2 (15:06→22:56)
[2017-03-02] MEDS: HABITROL TD SCH (15:06)
[2017-03-02] MEDS: PROTONIX PO SCH (15:07)
[2017-03-02] MEDS: LASIX IV SCH (15:07)
[2017-03-03 07:22] LABS: Hematocrit 47.1 % (35.5-45.6); Hemoglobin 15.4 gm/dl (11.8-15.2); Mean Corpuscular HGB Conc 33 % (32-34); Mean Corpuscular Hemoglobin 29 pg (28-32); Mean Corpuscular Volume 88 fl (84-94); Platelet Count 236 K/mm3 (140-440); Red Blood Count 5.35 M/mm3 (3.65-5.03); Red Cell Distribution Width 15.3 % (13.2-15.2)
[2017-03-03 07:28] LABS: BUN/Creatinine Ratio 14; Blood Urea Nitrogen 11 mg/dL (9-20); Calcium 8.6 mg/dL (8.4-10.2); Hemolysis Index 9
[2017-03-03 09:52] VITALS: BP 132/84
[2017-03-03] MEDS ORDERED: COZAAR PO SCH (10:00)
[2017-03-03] MEDS: ZESTRIL PO SCH (10:42)
[2017-03-03] MEDS: LASIX IV SCH (10:43)
[2017-03-03] MEDS: PROTONIX PO SCH (10:43)
[2017-03-03] MEDS: COREG PO SCH (10:43)
[2017-03-03] MEDS ORDERED: Fluarix Quad 2017-2018(36 MOS+ IM ONE (11:30)
--- NOTE | 2017-03-03 12:13 | Progress Note ---
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 Pt to be tx to [place] for possible CABG when bed is available. The patient has been seen in conjunction with Dr. Carlos who agrees with the assessment and plan of care. Subjective Date of service: 03/03/17 Principal diagnosis: HF Interval history: no current complaints. Objective Last Vital Signs Temp 97.7 F 03/03/17 08:40 Pulse 80 03/03/17 08:40 Resp 18 03/03/17 08:40 BP 132/84 03/03/17 08:40 Pulse Ox 100 03/03/17 08:40 - Physical Examination General: No Apparent Distress HEENT: Positive: Normocephaly, Mucus Membranes Moist Neck: Positive: neck supple, trachea midline Cardiac: Positive: Reg Rate and Rhythm, S1/S2 Lungs: Positive: clear to auscultation Neuro: Positive: Grossly Intact Abdomen: Positive: Soft, Active Bowel Sounds. Negative: Tender Skin: Positive: Clear. Negative: Rash Extremities: Present: +1 Edema (BLE) - Labs and Meds CBC 03/03/17 Range/Units 06:08 WBC 8.2 (4.5-11.0) K/mm3 RBC 5.35 H (3.65-5.03) M/mm3 Hgb 15.4 H (11.8-15.2) gm/dl Hct 47.1 H (35.5-45.6) % Plt Count 236 (140-440) K/mm3 Comprehensive Metabolic Panel 03/03/17 Range/Units 06:08 Sodium 140 (137-145) mmol/L Potassium 3.8 (3.6-5.0) mmol/L Chloride 100.2 (98-107) mmol/L Carbon Dioxide 27 (22-30) mmol/L BUN 11 (9-20) mg/dL Creatinine 0.8 (0.8-1.5) mg/dL Glucose 92 (75-100) mg/dL Calcium 8.6 (8.4-10.2) mg/dL - Imaging and Cardiology EKG: image reviewed Echo: report reviewed ( EF 25-30%, LV mild to moderately dilated, apex markedly hypokinetic, mild pulm HTN with RVSP 46mmHg, mild AR, mild to mod MR.) - Telemetry EKG Rhythm: Sinus Rhythm - EKG Sinus rhythms and dysrhythmias: sinus rhythm Repolarization changes or abnormalities: nonspecific abnormality, ST segment, and/or T wave <SUNDAY CARLOS R - Last Filed: 03/04/17 09:42> Assessment and Plan patient being transferred to [place] for CABG,awaiting bed availability.
== END 2017-03-03 15:48 | disposition short-term general hospital (02) | DRG 280 ==
LOC: ED 02:14 → 4A 08:48
PROVIDERS: ADMIT Internal Medicine; ATTEND Internal Medicine
PROC: 3E0234Z Introduction of Serum, Toxoid and Vaccine into Muscle, Percutaneous Approach (ICD-10-PCS; 2017-03-01)
PROC: 4A023N7 Measurement of Cardiac Sampling and Pressure, Left Heart, Percutaneous Approach (ICD-10-PCS; principal; 2017-03-02)
PROC: B2111ZZ Fluoroscopy of Multiple Coronary Arteries using Low Osmolar Contrast (ICD-10-PCS; 2017-03-02)
DX: I21.4 Non-ST elevation (NSTEMI) myocardial infarction (principal); I50.43 Acute on chronic combined systolic (congestive) and diastolic (congestive) heart failure; I42.0 Dilated cardiomyopathy; I11.0 Hypertensive heart disease with heart failure; M32.9 Systemic lupus erythematosus, unspecified; F17.200 Nicotine dependence, unspecified, uncomplicated; Z23 Encounter for immunization; Z82.3 Family history of stroke; Z82.49 Family history of ischemic heart disease and other diseases of the circulatory system; I16.0 Hypertensive urgency; I25.10 Atherosclerotic heart disease of native coronary artery without angina pectoris
CPT/HCPCS: 36415; 71045; 78452; 80048; 80061; 82962; 83880; 84484; 85025; 85027; 85520; 85610; 85730; 90686; 93005; 93010; 93017; 93306; 93458; 96374; 96375; 99406; A9270-GY; A9502; C1894; J1644; J1940; J2250; J2785; J3010; J7040; Q9967